=== PATIENT | male | born 1970 | race Caucasian/White ===

== ENCOUNTER 2021-05-17 15:19 | Observation (INO) | payer MEDICAID, SELFPAY ==
[2021-05-17] VITALS (7 sets, daily range): BP systolic 126–135; BP diastolic 71–88; PULSE 90–100; RESP 16–18; TEMP 37.1–38; O2SAT 93–100; BMI 23.1; BMI 22.4
--- NOTE | 2021-05-17 15:37 | EDS_ITS ---
HPI History of Present Illness Chief Complaint: Cellulitis Informant: patient Onset/Context/Timing Onset: Yesterday Context: Gradual Onset Timing: Continuous Current Severity: Moderate Maximum Severity: Moderate Narrative Narrative: 50-year-old male history of hepatitis and and be. Says he had an abrasion over his right ring finger knuckle. And yesterday started having redness and swelling. No prior history. He is not diabetic. Denies any known trauma or punching anyone in the mouth or getting bit. Prior similar symptoms: No Recent Illness/Hospitalization: No PFSH PFSH Home Medications oseltamivir 75 mg PO BID #10 capsule 07/14/16 [Rx Last Taken Unknown] Allergy/AdvReac Type Severity Reaction Status Date / Time No Known Allergies Allergy Verified 05/17/21 15:21 Social History Smoking Status: Current every day smoker tobacco type: cigarettes ROS ROS ED ROS Narrative Right hand swelling and redness. Subjective fever and chills. Review of Systems ROS Unobtainable: Denies due to encephalopathy Constitutional Constitutional ED: Reports chills, fever(s) and subjective; Denies sweats Eyes Eyes: Denies change in vision ENT ENT ED: Denies ear pain Cardiovascular Cardiovascular: Denies chest pain Respiratory/Chest Respiratory/Chest: Denies cough or dyspnea Gastrointestinal Gastrointestinal: Denies abdominal pain, diarrhea, nausea or vomiting Genitourinary Genitourinary ED: Denies dysuria Musculoskeletal Musculoskeletal: Denies myalgias Integumentary Denies rash Neurologic Neurologic: Denies headache(s) Psychiatric Psychiatric: Denies depression Endocrine Endocrinology: Denies polyuria Allergic/Immunologic Allergic/Immunologic ED: Denies urticaria EXAM Physical Exam Narrative Exam Narrative: Middle-age male no acute distress vital signs stable. Temperature 100.4. Patient does not look septic or toxic. Is in no acute distress. H EENT exam unremarkable. Neck nontender no lymphadenopathy. Lungs clear to auscultation bilaterally. Heart regular rhythm no murmur. Abdomen soft nontender normal bowel sounds no peritoneal signs. Extremities moves all 4. His right hand the dorsum is swollen red tender he is able do flexion exte nsion there is no signs of tenosynovitis. No gross bony deformity. There is an abrasion on his right MCP knuckle over the dorsum. Const Vital Signs: 05/17/21 15:19 05/17/21 16:55 05/17/21 17:05 Temperature 100.4 F H 99.4 F H Temperature Source Temporal Oral Pulse Rate 100 90 Respiratory Rate 16 16 Blood Pressure 127/88 H 135/82 H Blood Pressure Mean 101 99 Pulse Ox 100 100 Oxygen Delivery Method Room Air Room Air Positive well nourished and well developed; Negative for obese, cachectic, contractures or unkempt General Appearance ED: well developed and NAD; Negative for unkempt, cachectic, contractures or pallor Nutritional Appearance: Negative for cachectic or obese HEENT Reports moist mucous membranes Negative for trauma or tenderness Eyes PERRL and EOMs intact bilaterally Neck no lymphadenopathy, supple and no JVD General: Negative for tenderness Chest Wall inspection of chest normal and palpation of chest normal Resp normal respiratory effort and clear to auscultation bilaterally Auscultation: Negative for rales, rhonchi or wheezes Cardio regular rate, regular rhythm, S1 normal heart sound, S2 normal heart sound and no murmurs GI normal to inspection, nondistended, normoactive bowel sounds, non-tender, non- distended and no masses Auscultation: normoactive bowel sounds Palpation: soft; Negative for tender, guarding or rebound tenderness present Back/Spine no CVA tenderness Extremity Extremity Narrative: Dorsum right hand red, swollen streaks above the wrist. No axillary lymphadenopathy. No tenosynovitis. Able to open and close his hand. No bony deformity. General Extremety ED: Yes edema and tenderness General Extremity: edema Neuro oriented x3 and CN's II-XII intact bilaterally Sensorium / Orientation: alert; Negative for orientation impaired, lethargic or stuporous Motor Exam: strength 5/5 throughout Psych mental status grossly normal Appearance: Negative for unkempt Mood & Affect: Negative for depressed or tearful Skin No no rashes or lesions noted and No no wounds Skin Narrative: Dorsum right hand cellulitis. Abrasion right General Skin Exam: Negative for jaundice or pallor MDM MDM MDM Narrative Medical decision making narrative: 50-year-old with cellulitis to his right hand. He denies any trauma pain is bit. He will be started on IV Unasyn. Screening labs and x-ray being obtained. Repeat exam patient is doing well at 5:27 PM to the patient's elevated white count the mild swelling in his hand I think he would benefit from admission and IV antibiotics. I discussed with the hospitalist. Again he has no signs of tenosynovitis. Lab Data Attestation: I reviewed the patient's lab results. Lab results narrative: CBC shows a white count of 20,000. Hemoglobin 14.9. Platelets 241. Electrolytes sodium 134 gap is 7 normal BUN and creatinine. Glucose 148. Hand x-ray shows soft tissue swelling but no fracture. Labs: Laboratory Results - last 24 hr 05/17/21 05/17/21 15:49 15:49 WBC 20.3 H RBC 4.63 Hgb 14.9 Hct 44.2 MCV 95.5 H MCH 32.2 H MCHC 33.7 RDW Std Deviation 44.9 H RDW Coeff of Alessandra 12.7 Plt Count 241 MPV 9.1 Immature Gran % (Auto) 0.500 Neut % (Auto) 85.4 H Lymph % (Auto) 9.6 L [place] % (Auto) 4.2 Eos % (Auto) 0.1 Baso % (Auto) 0.2 Absolute Neuts (auto) 17.3 H Absolute Lymphs (auto) 1.95 Nucleated RBC % 0 Sodium 134 L Potassium 4.1 Chloride 100 Carbon Dioxide 27.0 Anion Gap 7 BUN 11 Creatinine 0.88 Estim Creat Clear Calc 114.01 Est GFR (MDRD) Af Amer 118 Est GFR (MDRD) Non-Af 97 BUN/Creatinine Ratio 12.5 Glucose 148 H Calcium 8.7 Radiography Diagnostic Testing: Clinical Impression(s) from Imaging Studies Hand X-Ray 05/17/21 15:57 IMPRESSION: Moderate soft tissue swelling Electronically Signed: Twin Cool MD at 16:50 EST , Service support , Right hand x-ray 3 views interpreted by myself and the radiologist shows soft tissue swelling but no acute fracture. No subcu air. Discharge Plan Triage Chief Complaint: Cellulitis ED Provider: Sohail Avery Dx/Rx/DC Orders Clinical Impression: Cellulitis of right hand, Leukocytosis Prescriptions: No Action oseltamivir 75 MG capsule 75 mg PO BID Qty: 10 RF: 0 Primary Care Provider: Victorino Obrien Referrals: Victorino Obrien MD [Primary Care Provider] - Disposition Disposition: Acute Care Hospital [facility] [place] [facility]
--- NOTE | 2021-05-17 15:57 | RAD_ITS ---
STUDY: X-RAY - RIGHT HAND REASON FOR EXAM: Male, 50 years old. RIGHT HAND SWELLING AND REDNESS SINCE YESTERDAY TECHNIQUE: 3 view(s) of the hand. COMPARISON: None. FINDINGS: Small corticated ossicle seen at the base and ulnar side of the fifth metacarpal bone could be developmental or sequela from old trauma. No visualized acute fractures. Moderate soft tissue swelling is present over the dorsum of the hand. Normal radiocarpal articulation. Normal distal radioulnar joint. Normal visualized carpal bones. Normal carpal articulations Normal carpometacarpal articulation of the thumb. Normal second through fifth carpometacarpal joints. Normal metacarpi. Normal metacarpophalangeal joint of the thumb. Normal interphalangeal joint of the thumb. Normal proximal and distal phalanges of the thumb. Normal metacarpophalangeal joints of the second through fifth fingers. Normal proximal and distal interphalangeal joints of the second through fifth fingers. Normal phalanges of the second through fifth fingers. RAD/Hand Min 3 Views IMPRESSION: Moderate soft tissue swelling Electronically Signed: Twin Cool MD at 16:50 EST , Service support ,
[2021-05-17 16:02] LABS: Absolute Lymphocyte Count 1.95 X10^3/uL (0.83-4.51); Absolute Neutrophil Count 17.3 X10^3/uL (2.0-7.7); Basophil# 0.04 X10^3/uL; Basophil% 0.2 % (0-1); Eosinophil# 0.03 X10^3/uL; Eosinophils% 0.1 % (0-5); Hematocrit 44.2 % (40-54); Hemoglobin 14.9 g/dL (13.0-16.5); Lymphocyte # 1.95 X10^3/ul (0.83-4.51); Lymphocyte % 9.6 % (19-41); Mean Corp Hgb Conc 33.7 g/dL (32-36); Mean Corpuscular Hgb 32.2 pg (27.0-32.0); Mean Corpuscular Volume 95.5 fL (80-94); Mean Platelet Vol. 9.1 fl (6.2-12.0); Monocyte# 0.85 X10^3/uL; Monocyte% 4.2 % (0-10); NRBC Flagged by Analyzer 0 % (0-5); Neutrophil # 17.28 X10^3/uL (2.7-7.7); Neutrophil % 85.4 % (47-70); Platelet Count 241 K/mm3 (150-450); RBC Distribution Width CV 12.7 % (11.6-14.6); RBC Distribution Width SD 44.9 fl (35.1-43.9); Red Blood Count 4.63 M/mm3 (4.6-6.2); White Blood Count 20.3 K/mm3 (4.4-11.0)
[2021-05-17 16:15] LABS: Anion Gap 7 (5-15); BUN 11 mg/dL (7-18); BUN/Creat Ratio 12.5 RATIO (10-20); Calcium,Total 8.7 mg/dL (8.5-10.1); Chloride 100 mmol/L (98-107); Creatinine, Serum 0.88 mg/dL (0.70-1.30); EST Glomerular Filtration Rate 97 mL/min (>60); Est Glom Filt Rate - Afr Amer 118 mL/min (>60); Estimated Creatinine Clearance 114.01 ml/min; Glucose 148 mg/dL (74-106); Potassium 4.1 mmol/L (3.5-5.1); Sodium Level 134 mmol/L (136-145)
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
[2021-05-17] MEDS: Acetaminophen 325 MG Tablet 650 MG PO (19:03)
[2021-05-17] MEDS: Lactated Ringers 1,000 ML 150 ML IV (19:03)
[2021-05-18] MEDS: Lactated Ringers 1,000 ML 150 ML IV (02:10)
[2021-05-18 03:29] VITALS: BP 138/80; PULSE 83; RESP 18; TEMP 37.1; O2SAT 99
[2021-05-18] MEDS: Ibuprofen 400 MG Tablet PO ×3 (03:49→20:22)
[2021-05-18 04:56] LABS: Absolute Lymphocyte Count 1.94 X10^3/uL (0.83-4.51); Absolute Neutrophil Count 11.6 X10^3/uL (2.0-7.7); Basophil# 0.04 X10^3/uL; Basophil% 0.3 % (0-1); Eosinophils% 0.7 % (0-5); Hematocrit 40.3 % (40-54); Hemoglobin 13.6 g/dL (13.0-16.5); Lymphocyte # 1.94 X10^3/ul (0.83-4.51); Mean Corp Hgb Conc 33.7 g/dL (32-36); Mean Corpuscular Hgb 32.5 pg (27.0-32.0); Mean Corpuscular Volume 96.2 fL (80-94); Mean Platelet Vol. 9.4 fl (6.2-12.0); Monocyte# 1.15 X10^3/uL; Monocyte% 7.7 % (0-10); NRBC Flagged by Analyzer 0 % (0-5); Neutrophil # 11.59 X10^3/uL (2.7-7.7); Neutrophil % 77.8 % (47-70); Platelet Count 223 K/mm3 (150-450); RBC Distribution Width CV 12.6 % (11.6-14.6); RBC Distribution Width SD 44.8 fl (35.1-43.9); Red Blood Count 4.19 M/mm3 (4.6-6.2); White Blood Count 14.9 K/mm3 (4.4-11.0)
[2021-05-18 05:27] LABS: AST(SGOT) 36 U/L (15-37); Alanine Aminotransfer ALT/SGPT 93 U/L (16-61); Albumin, Serum 3.1 g/dL (3.2-5.0); Alkaline Phosphatase 69 U/L (45-117); Anion Gap 6 (5-15); BUN 9 mg/dL (7-18); BUN/Creat Ratio 11.8 RATIO (10-20); Bilirubin, Direct 0.36 mg/dL (0.00-0.30); Calcium,Total 8.4 mg/dL (8.5-10.1); Chloride 104 mmol/L (98-107); Creatinine, Serum 0.76 mg/dL (0.70-1.30); EST Glomerular Filtration Rate 116 mL/min (>60); Est Glom Filt Rate - Afr Amer 140 mL/min (>60); Estimated Creatinine Clearance 128.46 ml/min; Globulin 3.9 g/dL (2.2-4.2); Glucose 114 mg/dL (74-106); Potassium 3.9 mmol/L (3.5-5.1); Sodium Level 135 mmol/L (136-145)
[2021-05-18 08:27] LABS: Hemoglobin A1c 5.5 % (3.8-5.6)
[2021-05-18] MEDS: 0.9% Saline Lock 10 ML Syringe IV ×4 (08:34→18:13)
[2021-05-18 10:00] VITALS: BP 113/69; PULSE 80; RESP 16; TEMP 36.8; O2SAT 98
[2021-05-18] MEDS: Acetaminophen 325 MG Tablet 650 MG PO ×2 (10:14→18:13)
--- NOTE | 2021-05-18 12:50 | PCM.PN.HOSP ---
Documented by User: Luis COREY 05/18/21 13:00 Subjective Subjective Patient is a 50-year-old male comfortably resting in bed, alert and orient x3. Patient reports patient reports that the pain, swelling and red streaking up the right arm has improved. Patient reports that his hand is still quite painful to touch and swollen and discolored. Denies development of any new symptoms overnight. Does not appear in acute distress. Objective Data Objective Data Vital Signs: Vital Signs Temp Pulse Resp BP Pulse Ox 98.2 F 80 16 113/69 98 05/18/21 10:00 05/18/21 10:00 05/18/21 10:00 05/18/21 10:00 05/18/21 10:00 Oxygen Delivery Method Room Air Weight: 170 lb 4.8 oz Body Mass Index (BMI) 22.4 Intake & Output: Intake and Output for Last 24 Hours 05/16/21 05/17/21 05/18/21 23:59 23:59 23:59 Intake Total 166 / 166 2339 / 2339 Balance 166 / 166 2339 / 2339 Lab / Micro Data Result Diagrams: 05/18/21 04:23 05/18/21 04:23 Labs: Laboratory Results - last 24 hr 05/17/21 15:49: WBC 20.3 H, RBC 4.63, Hgb 14.9, Hct 44.2, MCV 95.5 H, MCH 32.2 H, MCHC 33.7, RDW Std Deviation 44.9 H, RDW Coeff of Alessandra 12.7, Plt Count 241, MPV 9.1, Immature Gran % (Auto) 0.500, Neut % (Auto) 85.4 H, Lymph % (Auto) 9.6 L, [place] % (Auto) 4.2, Eos % (Auto) 0.1, Baso % (Auto) 0.2, Absolute Neuts (auto) 17.3 H, Absolute Lymphs (auto) 1.95, Nucleated RBC % 0 05/17/21 15:49: Sodium 134 L, Potassium 4.1, Chloride 100, Carbon Dioxide 27.0, Anion Gap 7, BUN 11, Creatinine 0.88, Estim Creat Clear Calc 114.01, Est GFR (MDRD) Af Amer 118, Est GFR (MDRD) Non-Af 97, BUN/Creatinine Ratio 12.5, Glucose 148 H, Calcium 8.7 05/18/21 04:23: Hemoglobin A1c 5.5 05/18/21 04:23: WBC 14.9 H, RBC 4.19 L, Hgb 13.6, Hct 40.3, MCV 96.2 H, MCH 32.5 H, MCHC 33.7, RDW Std Deviation 44.8 H, RDW Coeff of Alessandra 12.6, Plt Count 223, MPV 9.4, Immature Gran % (Auto) 0.500, Neut % (Auto) 77.8 H, Lymph % (Auto) 13.0 L, [place] % (Auto) 7.7, Eos % (Auto) 0.7, Baso % (Auto) 0.3, Absolute Neuts (auto) 11.6 H, Absolute Lymphs (auto) 1.94, Nucleated RBC % 0 05/18/21 04:23: Sodium 135 L, Potassium 3.9, Chloride 104, Carbon Dioxide 25.0, Anion Gap 6, BUN 9, Creatinine 0.76, Estim Creat Clear Calc 128.46, Est GFR (MDRD) Af Amer 140, Est GFR (MDRD) Non-Af 116, BUN/Creatinine Ratio 11.8, Glucose 114 H, Calcium 8.4 L, Total Bilirubin 1.20 H, Direct Bilirubin 0.36 H, AST 36, ALT 93 H, Alkaline Phosphatase 69, Total Protein 7.0, Albumin 3.1 L, Globulin 3.9 Radiography Diagnostic Testing: Radiology Impression Hand X-Ray 05/17/21 15:57 IMPRESSION: Moderate soft tissue swelling Electronically Signed: Twin Cool MD at 16:50 EST , Service support , Physical Exam Const alert, oriented x3 and no apparent distress HEENT head/scalp atraumatic and moist oral mucous membranes Head and Scalp: normocephalic Eyes PERRL, EOMs intact bilaterally and conjunctivae normal Neck no lymphadenopathy, supple and no JVD Resp normal respiratory effort, no retractions, no use of accessory muscles and clear to auscultation bilaterally Cardio regular rate, regular rhythm, no murmurs and no JVD GI normal to inspection, nondistended, normoactive bowel sounds, soft to palpation and non-tender Extremity Extremity Narrative: Right hand is still quite swollen, erythematous and tender to palpation. Streaking up the right arm has resolved. Skin Skin Narrative: See extremity. Neuro CN's II-XII intact bilaterally Psych affect normal Assessment & Plan Assessment/Plan (1) Cellulitis of right hand: (2) Leukocytosis: PLAN: Day 1 Discharge planning: Current plan is for patient to discharge home when medically ready. 1) cellulitis of the right hand/right upper extremity Right hand is still quite erythematous, swollen and tender to palpation. Vital signs are stable and patient is afebrile. CBC still demonstrates a leukocytosis, WBC is currently 14.9, improved from admission. Blood cultures ordered/pending. X-ray of the right hand admission demonstrated moderate soft tissue swelling. Transition from clindamycin to Zosyn and vancomycin for appropriate empiric coverage. 2) history of chronic hepatitis B infection Hepatitis B serologies and HIV serologies ordered/pending. DVT prophylaxis - low risk, not indicated. Patient seen by Luis Mayfield PA-C, under the supervision of Dr. Long. Time spent on patient care: 10 minutes. Documented by User: Dr. Nubia Long DO 05/18/21 15:04 Subjective Subjective This patient was seen in conjunction with MADHAV Quach. Following is representation my independent history and physical examination. Please see below for any addendum the above. Patient reports that his arm is feeling much better. He states that the redness is much less intense and not spreading as far as it had been. He agrees that the infection is likely due to the sore on his hand. He indicates he is currently homeless and living in his car. Objective Data Lab / Micro Data Result Diagrams: 05/18/21 04:23 05/18/21 04:23 Physical Exam Const alert, oriented x3, no apparent distress and average body habitus Constitutional Narrative: Very pleasant middle-aged white male sitting up in bed watching television, appears comfortable Exam Limitations: no limitations HEENT head/scalp atraumatic and moist oral mucous membranes Head and Scalp: normocephalic Resp normal respiratory effort, no retractions, no use of accessory muscles and clear to auscultation bilaterally Auscultation: Negative for crackles, rales, rhonchi or wheezes Cardio regular rate, regular rhythm, S1 normal heart sound, S2 normal heart sound, no murmurs, no rub, no gallops, no clicks and no JVD GI normal to inspection, nondistended, normoactive bowel sounds, soft to palpation, non-tender and non-distended Extremity Extremity Narrative: Right upper extremity with edema and erythema mostly at the distal aspect of the arm and dorsum of the hand, well-healing sore on the posterior aspect of his right index finger without any drainage, outline from admission noted and significant retraction of erythema noted Peripheral Pulses: Yes pulses 2+ throughout Neuro oriented x3, moves all extremities, no focal motor deficits and no sensory deficits noted Sensorium / Orientation: awake and alert Assessment & Plan Assessment/Plan (1) Cellulitis of right hand: (2) Leukocytosis: (3) Transaminitis: (4) Hyperbilirubinemia: PLAN: Assessment: Cellulitis of the right upper extremity Leukocytosis Transaminitis Hyperbilirubinemia Chronic hepatitis B infection Tobacco abuse Homelessness Plan: -Continue IV antibiotics with vancomycin and Zosyn -Clinically looks much improved -Suspect possible discharge in the next 24 hours -Hepatitis B studies pending -HIV status pending -Case management is consulted given his homelessness--> is currently living in his car Charges/Coding Visit Charges Inpatient E&M: 03263 [facility] Hosp L2
--- NOTE | 2021-05-18 14:34 | PCM.RX.CS ---
Consult Pharmacy has been consulted to manage selected antiobiotic: Vancomycin Type of Consult: New start Suspected Infection: Skin/Soft tissue Prior Doses of Antibiotics Received/Current Regimen: 1250MG X 1 INITIAL DOSE Labs: Sodium 135 mmol/L (136-145) L 05/18/21 04:23 Potassium 3.9 mmol/L (3.5-5.1) 05/18/21 04:23 Chloride 104 mmol/L (98-107) 05/18/21 04:23 Carbon Dioxide 25.0 mmol/L (21.0-32.0) 05/18/21 04:23 Anion Gap 6 (5-15) 05/18/21 04:23 BUN 9 mg/dL (7-18) 05/18/21 04:23 Creatinine 0.76 mg/dL (0.70-1.30) 05/18/21 04:23 Est GFR (MDRD) Af Amer 140 mL/min (>60) 05/18/21 04:23 Est GFR (MDRD) Non-Af 116 mL/min (>60) 05/18/21 04:23 BUN/Creatinine Ratio 11.8 RATIO (10-20) 05/18/21 04:23 Glucose 114 mg/dL (74-106) H 05/18/21 04:23 Weight used for dosin.2 kg Estimated Creatinine Clearance: >100ML/MIN Goal Trough: 15-20 mcg/mL Pharmacy Plan for Drug Dosing: Will begin 1gm iv q8h as initial therapy. Trough level ordered for 05.19.21 before 4th dose. Pharmacy Service will continue to monitor and adjust dosing as required. Follow-Up Labs: Trough Vancomycin - .02.28@1730 before 1800 dose
[2021-05-18 14:40] VITALS: BP 115/66; PULSE 82; RESP 16; TEMP 36.9; O2SAT 99
[2021-05-18] MEDS: Vancomycin IV 1,000 MG/200 ML BAG 200 MG IV (18:13)
[2021-05-18 20:17] VITALS: BP 110/66; PULSE 81; RESP 16; TEMP 36.9; O2SAT 98
[2021-05-19] MEDS: Vancomycin IV 1,000 MG/200 ML BAG 200 MG IV ×3 (01:46→21:52)
[2021-05-19 02:17] VITALS: BP 107/61; PULSE 71; RESP 16; TEMP 36.7; O2SAT 100
[2021-05-19 06:16] LABS: Absolute Lymphocyte Count 1.34 X10^3/uL (0.83-4.51); Absolute Neutrophil Count 5.7 X10^3/uL (2.0-7.7); Basophil# 0.03 X10^3/uL; Basophil% 0.4 % (0-1); Eosinophil# 0.16 X10^3/uL; Hematocrit 40.5 % (40-54); Hemoglobin 13.5 g/dL (13.0-16.5); Lymphocyte # 1.34 X10^3/ul (0.83-4.51); Lymphocyte % 17.1 % (19-41); Mean Corp Hgb Conc 33.3 g/dL (32-36); Mean Corpuscular Hgb 31.9 pg (27.0-32.0); Mean Corpuscular Volume 95.7 fL (80-94); Mean Platelet Vol. 9.2 fl (6.2-12.0); Monocyte# 0.62 X10^3/uL; Monocyte% 7.9 % (0-10); NRBC Flagged by Analyzer 0 % (0-5); Neutrophil # 5.65 X10^3/uL (2.7-7.7); Neutrophil % 72.2 % (47-70); Platelet Count 222 K/mm3 (150-450); RBC Distribution Width CV 12.7 % (11.6-14.6); RBC Distribution Width SD 45.1 fl (35.1-43.9); Red Blood Count 4.23 M/mm3 (4.6-6.2); White Blood Count 7.8 K/mm3 (4.4-11.0)
[2021-05-19 06:44] LABS: Anion Gap 5 (5-15); BUN 13 mg/dL (7-18); BUN/Creat Ratio 16.6 RATIO (10-20); Calcium,Total 8.1 mg/dL (8.5-10.1); Chloride 109 mmol/L (98-107); Creatinine, Serum 0.78 mg/dL (0.70-1.30); EST Glomerular Filtration Rate 111 mL/min (>60); Est Glom Filt Rate - Afr Amer 135 mL/min (>60); Estimated Creatinine Clearance 125.17 ml/min; Glucose 109 mg/dL (74-106); Potassium 4.2 mmol/L (3.5-5.1); Sodium Level 140 mmol/L (136-145)
[2021-05-19 08:43] LABS: Hepatitis B Surface Antibody Reactive; Hepatitis B Surface Antigen Non-Reactive (Nonreactive)
[2021-05-19 08:49] LABS: HIV - WCH Non-Reactive (Nonreactive)
[2021-05-19 09:15] VITALS: BP 99/54; PULSE 84; RESP 18; TEMP 36.8; O2SAT 100
--- NOTE | 2021-05-19 10:44 | NURSING ---
Dr. Leonard not here per blasting machine operator but his Nurse Practioner will see his pts only, no consults. Dr. Gilbert notifed since there is an order for consulting him.
--- NOTE | 2021-05-19 11:15 | CASEMGMT ---
DAKOTA HERBERT Face to Face with patient for initial transition planning/care coordination assessment. RN PIEDAD introduced self and role at [facility]. Patient lying in bed, alert and oriented. Patient willing to participate in assessment and is able to answer all questions appropriately. Care providers, pharmacy, and demographics verified. Patient wishes to discharge to his car where he lives, denies need for home health at this time. Patient states he has no further needs or concerns at this time. CM to follow for discharge planning needs that may arise. PCP: Camille Specialists: none Preferred Pharmacy: [facility] Insurance: [employer] Prescription Benefit: yes Living Will/HPOA: none LNOK: brother Living Arrangements: Patient states he is living in his car. Patient states he is independent and denies needs. SW updated regarding homelessness Transportation: self DME/HHC: Patient denies any DME or previous HHC. Disposition Plan: Patient to discharge with follow-up plans in place. Michaela SERNA, RN, CM
--- NOTE | 2021-05-19 12:03 | PN.HOSP_ITS ---
Documented by User: Luis COREY 05/19/21 12:09 Subjective Subjective Patient is a 50-year-old male comfortably lying in bed, alert and orient x3. Patient reports that his right hand is still very swollen, although is no longer tender to palpation and feels that redness is also improved. Denies development of any new symptoms overnight. Does not appear in acute distress. Objective Data Objective Data Vital Signs: Vital Signs Temp Pulse Resp BP Pulse Ox 98.3 F 84 18 99/54 L 100 05/19/21 09:15 05/19/21 09:15 05/19/21 09:15 05/19/21 09:15 05/19/21 09:15 Oxygen Delivery Method Room Air Weight: 170 lb 4.8 oz Body Mass Index (BMI) 22.4 Intake & Output: Intake and Output for Last 24 Hours 05/17/21 05/18/21 05/19/21 23:59 23:59 23:59 Intake Total 166 / 166 3489 / 3989 1050 / 1050 Balance 166 / 166 3489 / 3989 1050 / 1050 Lab / Micro Data Result Diagrams: 05/19/21 05:56 05/19/21 05:56 Labs: Laboratory Results - last 24 hr 05/18/21 04:23: HIV 1&2 Antibody Non-Reactive 05/18/21 04:23: Hep Bs Antigen Non-Reactive, Hep Bs Antibody Reactive 05/19/21 05:56: WBC 7.8, RBC 4.23 L, Hgb 13.5, Hct 40.5, MCV 95.7 H, MCH 31.9, MCHC 33.3, RDW Std Deviation 45.1 H, RDW Coeff of Alessandra 12.7, Plt Count 222, MPV 9.2, Immature Gran % (Auto) 0.400, Neut % (Auto) 72.2 H, Lymph % (Auto) 17.1 L, [place] % (Auto) 7.9, Eos % (Auto) 2.0, Baso % (Auto) 0.4, Absolute Neuts (auto) 5.7, Absolute Lymphs (auto) 1.34, Nucleated RBC % 0 05/19/21 05:56: Sodium 140, Potassium 4.2, Chloride 109 H, Carbon Dioxide 26.0, Anion Gap 5, BUN 13, Creatinine 0.78, Estim Creat Clear Calc 125.17, Est GFR (MDRD) Af Amer 135, Est GFR (MDRD) Non-Af 111, BUN/Creatinine Ratio 16.6, Glucose 109 H, Calcium 8.1 L Physical Exam Const alert, oriented x3 and no apparent distress HEENT head/scalp atraumatic and moist oral mucous membranes Head and Scalp: normocephalic Eyes PERRL, EOMs intact bilaterally and conjunctivae normal Neck no lymphadenopathy, supple and no JVD Resp normal respiratory effort, no retractions, no use of accessory muscles and clear to auscultation bilaterally Cardio regular rate, regular rhythm, no murmurs and no JVD GI normal to inspection, nondistended, normoactive bowel sounds, soft to palpation and non-tender Extremity Extremity Narrative: Right hand still profoundly swollen, erythema improved. Skin no rashes or lesions noted, no wounds and skin turgor normal Neuro CN's II-XII intact bilaterally Psych affect normal Assessment & Plan Assessment/Plan (1) Cellulitis of right hand: PLAN: Day 2 Discharge planning: Current plan is for patient to discharge home when medically ready. 1) cellulitis of the right hand/right upper extremity Right hand is still very swollen, although redness and tenderness to palpation have improved. Vital signs are stable and patient is afebrile. Leukocytosis has resolved, WBC is currently at 7.8. Blood cultures ordered/pending. Will consult orthopedics or general surgery for possible I&D of right hand, as plastic surgeon is not currently available. Continue vancomycin and Zosyn. 2) history of chronic hepatitis B infection Hepatitis B serologies and HIV serologies ordered/pending. DVT prophylaxis - low risk, not indicated. Patient seen by Luis Mayfield PA-C, under the supervision of Dr. Gilbert. Time spent on patient care: 9 minutes. Documented by User: Dr. Bhargavi Gilbert MD 05/19/21 16:07 Objective Data Lab / Micro Data Result Diagrams: 05/19/21 05:56 05/19/21 05:56 Charges/Coding Addendum Addendum: Patient seen by Luis Mayfield PA-C under my supervision Patient seen and examined. He still complains of pain and swelling of his right hand. He is able to make a fist. However dorsum of the right hand is still swollen and erythematous and mildly tender to touch. Review of systems otherwise negative. O/E: Const alert, oriented x3 and no apparent distress HEENT head/scalp atraumatic and moist oral mucous membranes Head and Scalp: normocephalic Eyes PERRL, EOMs intact bilaterally and conjunctivae normal Neck no lymphadenopathy, supple and no JVD Resp normal respiratory effort, no retractions, no use of accessory muscles and clear to auscultation bilaterally Cardio regular rate, regular rhythm, no murmurs and no JVD GI normal to inspection, nondistended, normoactive bowel sounds, soft to palpation and non-tender Extremity Extremity Narrative: Dorsum of right hand still swollen, mildly erythematous, moderate tenderness, able to make a fist. Skin no rashes or lesions noted, no wounds and skin turgor normal Neuro CN's II-XII intact bilaterally Psych affect normal Assessment and plan #Cellulitis of the right hand * Hand is still swollen and the redness and tenderness appear to have improved. Leukocytosis is also resolved. * Blood cultures are pending. Continue IV Zosyn. * Consult Ortho in light of sepsis persistent swelling of right hand. Plastic surgery not available. * Ortho recommending MRI of the hand to evaluate for abscess. Results pending. * Tylenol for pain. * #Chronic hepatitis B infection: * Hepatitis B surface antigen nonreactive with antibody reactive. * Patient stable. * HIV 1 and 2 antibodies were also nonreactive * DVT prophylaxis: lovenox Total time spent on care of patient: 20 mins Visit Charges Inpatient E&M: 15754 Subs Hosp L2
--- NOTE | 2021-05-19 12:36 | MRI_ITS ---
STUDY: MRI RIGHT HAND REASON FOR EXAM: Male, 50 years old. Assess for possible abscess /osteomyelitis; swelling,redness, tenderness, dorsum right hand, no known injury TECHNIQUE: Standardized fat and water weighted pulse sequences were obtained in all 3 orthogonal planes. COMPARISON: Right hand x-ray dated May 17, 2021 FINDINGS: Interval development of a distended degenerated bursa on the superficial volar surface of the flexor retinaculum of the wrist measuring 2.78 cm in craniocaudal dimension and 1.5 cm in width. Possible superinfection of this bursal cyst, however direct aspiration of the internal contents would be required to determine if they are infected. Moderate subcutaneous edema is present throughout the hand. FIRST DIGIT: Normal visualized first metacarpus. Moderate degenerative narrowing of the CMC articulation of the thumb and moderate lateral subluxation of the metacarpal bone of the thumb. Mild narrowing of the MCP and IP joints of the thumb and osteoarthritis. Normal flexor and extensor tendons. SECOND DIGIT: Normal visualized second metacarpus. There is mild to moderate osteoarthritis and degenerative narrowing of the second CMC. Normal metacarpophalangeal joint. Normal proximal and distal interphalangeal joints. Normal proximal, middle and distal phalanges. Normal flexor and extensor tendons. THIRD DIGIT: Normal visualized third metacarpus. Normal metacarpophalangeal joint. Normal proximal and distal interphalangeal joints. Normal proximal, middle and distal phalanges. Normal flexor and extensor tendons. FOURTH DIGIT: Normal visualized fourth metacarpus. Normal metacarpophalangeal joint. Normal proximal and distal interphalangeal joints. Normal proximal, middle and distal phalanges. Normal flexor and extensor tendons. FIFTH DIGIT: Normal visualized fifth metacarpus. Normal metacarpophalangeal joint. Normal proximal and distal interphalangeal joints. Normal proximal, middle and distal phalanges. Normal flexor and extensor tendons. Normal visualized thenar and hypothenar muscles. Normal lumbricalis and interosseous muscles. There are no solid, cystic or lipomatous masses. MRI/Upper Ext/No Jt/ wo IMPRESSION: 1. Interval development of a distended degenerated bursa on the superficial volar surface of the flexor retinaculum of the wrist measuring 2.78 cm in craniocaudal dimension and 1.5 cm in width. Possible superinfection of this bursal cyst, however direct aspiration of the internal contents would be required to determine if they are infected. 2. Moderate subcutaneous edema is present throughout the hand. Cellulitis versus lymphedema or third spacing of fluid from an underlying systemic process can also present in this manner. Electronically Signed: Twin Cool MD at 19:54 EST , Service support ,
[2021-05-19] MEDS: Acetaminophen 325 MG Tablet 650 MG PO (13:26)
--- NOTE | 2021-05-19 13:46 | NURSING ---
MRI sheet completed and faxed down to MRI.
--- NOTE | 2021-05-19 13:57 | RAD_ITS ---
STUDY: X-RAY - ORBITS REASON FOR EXAM: Male, 50 years old. PRE MRI ORBITS; R/O FOREIGN BODY TECHNIQUE: 2 view(s) of the orbits were obtained. COMPARISON: None. FINDINGS: Normal bilateral orbits without a metallic orbital foreign body. Normal visualized facial bones. Normal paranasal sinuses. The soft tissue structures are unremarkable. RAD/Orbits for Foreign Body IMPRESSION: No demonstrated metallic orbital foreign body. The patient is cleared for an MRI examination. Electronically Signed: Abdon Wyatt MD at 14:57 EST , Service support ,
[2021-05-19 14:30] VITALS: BP 107/55; PULSE 72; RESP 18; TEMP 37; O2SAT 99
--- NOTE | 2021-05-19 14:39 | NURSING ---
Pt is [facility] locked and going down via WC to Radiology then to MRI.
--- NOTE | 2021-05-19 16:15 | NURSING ---
PT BACK FROM RAD AND MRI AT THIS X VIA , DENIES NEEDS OR C/O. CALL LIGHT IN REACH.
--- NOTE | 2021-05-19 16:43 | NURSING ---
Pt just got back from MRI. hooked back up to IV.
[2021-05-19] MEDS: Piperacil/Tazobactam 3.375 GM/50 ML ML IV ×2 (17:08→23:06)
[2021-05-19 18:53] LABS: Vancomycin, Trough Level 17.8 ug/mL (5.0-15.0)
[2021-05-19 19:33] VITALS: BP 111/54; PULSE 80; RESP 16; TEMP 36.6; O2SAT 100
--- NOTE | 2021-05-19 19:47 | PCM.RX.CS ---
Consult Pharmacy has been consulted to manage selected antiobiotic: Vancomycin Type of Consult: New start Prior Doses of Antibiotics Received/Current Regimen: Medications Vancomycin HCl (Vancomycin) 1,000 mg in 200 mls @ 200 mls/hr IV Q8H SAMUEL Last Admin: 05/19/21 14:40 Dose: Infused Documented by: Labs: Sodium 140 mmol/L (136-145) 05/19/21 05:56 Potassium 4.2 mmol/L (3.5-5.1) 05/19/21 05:56 Chloride 109 mmol/L (98-107) H 05/19/21 05:56 Carbon Dioxide 26.0 mmol/L (21.0-32.0) 05/19/21 05:56 Anion Gap 5 (5-15) 05/19/21 05:56 BUN 13 mg/dL (7-18) 05/19/21 05:56 Creatinine 0.78 mg/dL (0.70-1.30) 05/19/21 05:56 Est GFR (MDRD) Af Amer 135 mL/min (>60) 05/19/21 05:56 Est GFR (MDRD) Non-Af 111 mL/min (>60) 05/19/21 05:56 BUN/Creatinine Ratio 16.6 RATIO (10-20) 05/19/21 05:56 Glucose 109 mg/dL (74-106) H 05/19/21 05:56 Vancomycin Trough 17.8 ug/mL (5.0-15.0) H 05/19/21 17:35 Weight used for dosin kg Goal Trough: 15-20 mcg/mL Pharmacy Plan for Drug Dosing: Trough in goal range but only a 4 hour level. Recommend to adjust times to new 09-19-20 schedule and recheck trough prior to 4th dose. Patient also on q8 Zosyn so timing may continue to be difficult. Pharmacy Service will continue to monitor and adjust dosing as required. Follow-Up Labs: Trough Vancomycin - 05/20 @ 2030
--- NOTE | 2021-05-20 00:14 | PCS.PANDOC ---
PANDEMIC DOCUMENTATION INITIATED: Date: 12/23/2020 Time: 190
[2021-05-20 05:16] VITALS: PULSE 71; RESP 16; TEMP 36.7; O2SAT 98
[2021-05-20] MEDS: Vancomycin IV 1,000 MG/200 ML BAG 200 MG IV (05:19)
[2021-05-20] MEDS: Ibuprofen 400 MG Tablet PO (05:19)
[2021-05-20 06:09] LABS: Absolute Lymphocyte Count 1.71 X10^3/uL (0.83-4.51); Absolute Neutrophil Count 3.9 X10^3/uL (2.0-7.7); Basophil# 0.05 X10^3/uL; Basophil% 0.8 % (0-1); Eosinophil# 0.21 X10^3/uL; Eosinophils% 3.3 % (0-5); Hematocrit 41.7 % (40-54); Lymphocyte # 1.71 X10^3/ul (0.83-4.51); Lymphocyte % 26.8 % (19-41); Mean Corp Hgb Conc 33.6 g/dL (32-36); Mean Corpuscular Hgb 31.7 pg (27.0-32.0); Mean Corpuscular Volume 94.6 fL (80-94); Mean Platelet Vol. 9.1 fl (6.2-12.0); Monocyte# 0.49 X10^3/uL; Monocyte% 7.7 % (0-10); NRBC Flagged by Analyzer 0 % (0-5); Neutrophil % 60.9 % (47-70); Platelet Count 279 K/mm3 (150-450); RBC Distribution Width CV 12.6 % (11.6-14.6); RBC Distribution Width SD 43.9 fl (35.1-43.9); Red Blood Count 4.41 M/mm3 (4.6-6.2); White Blood Count 6.4 K/mm3 (4.4-11.0)
[2021-05-20 06:28] LABS: Anion Gap 6 (5-15); BUN 11 mg/dL (7-18); BUN/Creat Ratio 13.2 RATIO (10-20); Calcium,Total 8.4 mg/dL (8.5-10.1); Chloride 106 mmol/L (98-107); Creatinine, Serum 0.83 mg/dL (0.70-1.30); EST Glomerular Filtration Rate 104 mL/min (>60); Est Glom Filt Rate - Afr Amer 126 mL/min (>60); Estimated Creatinine Clearance 117.63 ml/min; Glucose 112 mg/dL (74-106); Potassium 4.1 mmol/L (3.5-5.1); Sodium Level 138 mmol/L (136-145)
[2021-05-20] MEDS: Piperacil/Tazobactam 3.375 GM/50 ML ML IV (06:41)
[2021-05-20 08:32] VITALS: BP 111/79; PULSE 68; RESP 16; TEMP 36.6; O2SAT 100
--- NOTE | 2021-05-20 09:42 | CON.PCM.OR_ITS ---
HPI Consult Data Date of Consult: 05/20/21 HPI Narrative HPI Narrative: TWIN MOYA, is a 50 M who presented to [facility] emergency department 05/19/2021 with lymphangitic streaking and cellulitis of his right hand. He states he first noted the redness, swelling, and pain 2 days prior to presentation and the streaking started the day after. He denies any antecedent trauma, although he does note a healing abrasion over the interspace between his third and fourth right metacarpal heads. 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 He also notes a remote injury overlying his right carpal tunnel resulting in a subcutaneous fluid collection which has been chronic. He states this is more of a nuisance and has been unchanged since this recent infection. He denies significant pain with this fluid collection. He states most of his pain is in between the third and fourth metacarpals on the dorsum of his hand. He was admitted under the hospitalist service and after 24 hours of IV antibiotics, patient states his pain, swelling, and redness is much improved. He had some fevers and chills yesterday which have since resolved. Denies any nausea or vomiting, chest pain or shortness of breath. PFSH Medical History Hepatitis Smoker Allergy/AdvReac Type Severity Reaction Status Date / Time No Known Allergies Allergy Verified 05/17/21 15:21 Social History Smoking Status: Current every day smoker tobacco type: cigarettes ROS ROS Narrative 10 point review of systems obtained, negative less otherwise noted in HPI. Vital Signs Vital Signs Vital Signs: 05/19/21 14:30 05/19/21 19:33 05/20/21 05:16 Temperature 98.6 F 98 F 98.0 F Temperature Source Oral Oral Oral Pulse Rate 72 80 71 Respiratory Rate 18 16 16 Respiratory Effort Respiratory Depth Respiratory Pattern Blood Pressure 107/55 L 111/54 L Blood Pressure Mean 72 73 Blood Pressure Source Monitor Monitor Monitor Blood Pressure Position Semi-Fowlers Semi-Fowlers Semi-Fowlers Blood Pressure Location Right Arm Left Arm Left Arm Pulse Ox 99 100 98 Oxygen Delivery Method Room Air Room Air Room Air 05/20/21 08:32 Temperature 97.9 F Temperature Source Oral Pulse Rate 68 Respiratory Rate 16 Respiratory Effort Normal Respiratory Depth Normal Respiratory Pattern Normal Blood Pressure 111/79 Blood Pressure Mean 89 Blood Pressure Source Monitor Blood Pressure Position Semi-Fowlers Blood Pressure Location Left Arm Pulse Ox 100 Oxygen Delivery Method Room Air Weight Weight: 170 lb 4.8 oz Body Mass Index (BMI) 22.4 Physical Exam Narrative General -A&Ox3, NAD, appears stated age. Vital signs stable, afebrile. Respiratory -normal work of breathing, no intercostal retractions. CV -pulses regular, brisk capillary refill ?4 limbs. Abdomen-soft, nontender, nondistended. No guarding, rigidity, rebound tenderness. Musculoskeletal/neurologic -hand-cardinal motions of the right hand are intact. Sensation intact to light touch median, ulnar, superficial branch of the radial nerve. Brisk capillary refill in all digits. Radial pulse is 2+. Compartments are soft and compressible. There is a fluctuant fluid collection 4 x 2 cm overlying the carpal tunnel and subcutaneous tissue. This is not erythematous. There is some erythema overlying the interspace between the third and fourth metacarpal heads which is mildly tender. Surgical marker along his forearm demonstrated previous cellulitic versus lymphangitic streaking, which is apparently much improved. There is only mild tenderness to palpation in the forearm. This is nonfocal. Lab / Micro Data Result Diagrams: 05/20/21 05:33 05/20/21 05:33 Labs: Laboratory Results - last 24 hr 05/19/21 17:35: Vancomycin Trough 17.8 H 05/20/21 05:33: WBC 6.4, RBC 4.41 L, Hgb 14.0, Hct 41.7, MCV 94.6 H, MCH 31.7, MCHC 33.6, RDW Std Deviation 43.9, RDW Coeff of Alessandra 12.6, Plt Count 279, MPV 9.1, Immature Gran % (Auto) 0.500, Neut % (Auto) 60.9, Lymph % (Auto) 26.8, [place] % (Auto) 7.7, Eos % (Auto) 3.3, Baso % (Auto) 0.8, Absolute Neuts (auto) 3.9, Absolute Lymphs (auto) 1.71, Nucleated RBC % 0 05/20/21 05:33: Sodium 138, Potassium 4.1, Chloride 106, Carbon Dioxide 26.0, Anion Gap 6, BUN 11, Creatinine 0.83, Estim Creat Clear Calc 117.63, Est GFR (MDRD) Af Amer 126, Est GFR (MDRD) Non-Af 104, BUN/Creatinine Ratio 13.2, Glucos e 112 H, Calcium 8.4 L Micro: Microbiology 05/17/21 19:51 Blood Culture (Wb) - Left Hand Blood Culture - Preliminary No growth in 48 hours. 05/17/21 19:45 Blood Culture (Wb) - Left Forearm Blood Culture - Preliminary No growth in 48 hours. Radiology Impression Upper Extremity MRI 05/19/21 12:36 IMPRESSION: 1. Interval development of a distended degenerated bursa on the superficial volar surface of the flexor retinaculum of the wrist measuring 2.78 cm in craniocaudal dimension and 1.5 cm in width. Possible superinfection of this bursal cyst, however direct aspiration of the internal contents would be required to determine if they are infected. 2. Moderate subcutaneous edema is present throughout the hand. Cellulitis versus lymphedema or third spacing of fluid from an underlying systemic process can also present in this manner. Electronically Signed: Twin Cool MD at 19:54 EST , Service support , Orbit X-Ray 05/19/21 13:57 IMPRESSION: No demonstrated metallic orbital foreign body. The patient is cleared for an MRI examination. Electronically Signed: Abdon Wyatt MD at 14:57 EST , Service support , Assessment & Plan Assessment/Plan (1) Cellulitis of right hand: PLAN: Patient's presentation is consistent with cellulitis of his right hand with previous lymphangitic streaking -Condition appears much improved with IV antibiotics. There was concern for abscess. There is a chronic fluid collection overlying his carpal tunnel, likely a bursa versus simple cyst from prior penetrating injury. This is not an abscess. I recommended continue medical management with transition to oral antibiotics upon discharge for his cellulitis. Educated the patient about elevating his hand above his elbow, and his elbow above his heart to decrease the swelling in his hand. Range of motion exercises were demonstrated of the right hand. He can follow-up with me as needed. I stated that the fluid collection/bursa overlying his carpal tunnel could be resected on a elective basis and he can follow-up with me as needed for this issue as well. Thank you for this consultation. I will sign off. Please do not hesitate to call if any questions or concerns arise.
--- NOTE | 2021-05-20 10:58 | PCM.DC ---
Discharge Instructions Diet Discharge Diet: No restrictions Activity Discharge Activity: Return to Normal Activity Weight Bearing Status: Weight bearing as tolerated Dressing / Incision Call your doctor if you observe: Fever of 101 or Higher, Numbness or Tingling, Shortness of breath, Dizziness, Chest pain, Increased palpitations (irregular heartbeat) and Calf discomfort Follow Up Care Please Follow Up With: Primary care provider When: Within the next two weeks. Test Results: Test results from this visit will be discussed in further detail at your follow-up appointment, if applicable. Discharge Plan Admission Admit Date/Time: 05/17/21 19:16 Primary Reason for Your Visit: RUE cellulitis. Attending Provider: Bhargavi Gilbert Primary Care Provider: Victorino Obrien Discharge Orders/Prescriptions Prescriptions: New doxycycline monohydrate 100 mg capsule 100 mg PO BID Qty: 18 RF: 0 Referrals / Follow Up: Victorino Obrien MD [Primary Care Provider] - Within 2 Weeks Chapincito Trinh DO [STAFF PHYSICIAN] - See Referral Note (See Dr. Trinh for elective removal of bursal cyst. ) Disposition Disposition (needs filled in before D/C Order can be placed): Home, Self Care
--- NOTE | 2021-05-20 11:44 | CASEMGMT ---
Social Work Pt is currently homeless. SW met with pt to discuss discharge plan. Pt stating that he currently lives in his car as he was unable to pay rent and was evicted. SW provided resources on [facility] homeless skilled nursing as well as written information on shelters in [facility] and [place]. SW also informed pt of the [facility] at [facility]. SW provided housing information form [facility] and the [facility] housing support program. Written [employer] Card also provided. Pt appreciative and thankful for information and informs SW that he will take care of it and declines any further assistance at this time. SW inquired about leaving and pt states his car is at the [facility] apartment complex in [place]. SW inquired about pt getting there safely and he states he will walk. SW offered hospital van transportation or to assist with arranging Taxi. Pt declined again stating he can take care of himself. No further SW needs. Nursing updated. KENDY Jay
--- NOTE | 2021-05-20 14:26 | DS.PCM_ITS ---
Documented by User: Luis COREY 05/20/21 14:34 Providers Date of Admission: 05/17/21 Date of Discharge: 05/20/21 Primary Care Physician: Dr. Victorino Obrien MD Reason For Visit: HAND CELLULITIS Diagnosis Discharge Diagnosis (1) Cellulitis of right hand: Status: Acute Code(s): L03.113 - Cellulitis of right upper limb Medications at Discharge Home Medications doxycycline monohydrate 100 mg PO BID #18 cap 05/20/21 Hospital Course Summary of Care Provided Minutes Spent on Discharge: 15 Hospital Course: Patient is a 50-year-old male who was admitted to the hospital on 05/17/2021 for evaluation and management of right upper extremity cellulitis. 1) cellulitis of the right hand/right upper extremity Patient's right hand swelling has significantly improved from yesterday. Patient erythema, tenderness and streaking have also resolved from admission. Vital signs are stable and patient is afebrile. Leukocytosis has resolved, WBC is currently at 6.4. Blood cultures demonstrate no growth. Orthopedics was consulted on day 2 of admission, out of concern for possible need for incision and drainage as her right hand was still acutely swollen. MRI obtained, no abscess appreciated. Orthopedics did meet with patient and is in agreement that there is no need for acute I&D, although, Dr. Trinh would like to see this patient in outpatient basis for possible elective removal of bursal cyst in the right wrist. Referral made to Dr. Trinh, patient is to continue taking doxycycline for another 9 days, and is to follow-up with primary care provider within the next 2 weeks. 2) history of chronic hepatitis B infection Hepatitis B antibodies present, antigens negative. HIV 1 and 2 antibodies not reactive. Patient to follow-up with primary care provider for outpatient management of chronic hepatitis B. Patient seen by Luis Mayfield PA-C, under the supervision of Dr. Gilbert. Time spent on patient care: 15 minutes. Physical Exam Narrative Patient is a 50-year-old male comfortably resting in bed, alert and orient x3. Patient reports that his hand swelling has significantly improved from yesterday. Erythema and tenderness to palpation have also resolved from admission. Denies development of any new symptoms overnight. Does not appear in acute distress. Const alert, oriented x3 and no apparent distress HEENT normocephalic, head/scalp atraumatic and hearing grossly normal bilaterally Eyes PERRL, EOMs intact bilaterally and conjunctivae normal Neck no lymphadenopathy, supple and no JVD Resp normal respiratory effort, no retractions, no use of accessory muscles and clear to auscultation bilaterally Cardio regular rate, regular rhythm, no murmurs and no JVD GI normal to inspection, nondistended, normoactive bowel sounds and non-tender Extremity normal to inspection, full ROM and no clubbing, cyanosis or edema Skin no rashes or lesions noted, no wounds and skin turgor normal Neuro CN's II-XII intact bilaterally Psych affect normal Weight / BMI Weight Weight: 170 lb 4.8 oz Body Mass Index (BMI) 22.4 ABG / Lab / Microbiology Data Result Diagrams: 05/20/21 05:33 05/20/21 05:33 Laboratory: Laboratory Results - last 24 hr 05/19/21 17:35: Vancomycin Trough 17.8 H 05/20/21 05:33: WBC 6.4, RBC 4.41 L, Hgb 14.0, Hct 41.7, MCV 94.6 H, MCH 31.7, MCHC 33.6, RDW Std Deviation 43.9, RDW Coeff of Alessandra 12.6, Plt Count 279, MPV 9.1, Immature Gran % (Auto) 0.500, Neut % (Auto) 60.9, Lymph % (Auto) 26.8, Caswell % (Auto) 7.7, Eos % (Auto) 3.3, Baso % (Auto) 0.8, Absolute Neuts (auto) 3.9, Absolute Lymphs (auto) 1.71, Nucleated RBC % 0 05/20/21 05:33: Sodium 138, Potassium 4.1, Chloride 106, Carbon Dioxide 26.0, Anion Gap 6, BUN 11, Creatinine 0.83, Estim Creat Clear Calc 117.63, Est GFR (MDRD) Af Amer 126, Est GFR (MDRD) Non-Af 104, BUN/Creatinine Ratio 13.2, Glucose 112 H, Calcium 8.4 L Microbiology: Microbiology 05/20/21 09:20 Nasal Secretion SARS-CoV-2 Antigen (Rapid) - Final 05/17/21 19:51 Blood Culture (Wb) - Left Hand Blood Culture - Preliminary No growth in 48 hours. 05/17/21 19:45 Blood Culture (Wb) - Left Forearm Blood Culture - Preliminary No growth in 48 hours. Radiography Diagnostic Testing: Radiology Impression Upper Extremity MRI 05/19/21 12:36 IMPRESSION: 1. Interval development of a distended degenerated bursa on the superficial volar surface of the flexor retinaculum of the wrist measuring 2.78 cm in craniocaudal dimension and 1.5 cm in width. Possible superinfection of this bursal cyst, however direct aspiration of the internal contents would be required to determine if they are infected. 2. Moderate subcutaneous edema is present throughout the hand. Cellulitis versus lymphedema or third spacing of fluid from an underlying systemic process can also present in this manner. Electronically Signed: Twin Cool MD at 19:54 EST , Service support , Orbit X-Ray 05/19/21 13:57 IMPRESSION: No demonstrated metallic orbital foreign body. The patient is cleared for an MRI examination. Electronically Signed: Abdon Wyatt MD at 14:57 EST , Service support , D/C Instructions Discharge Diet: No restrictions Weight Bearing Status: Weight bearing as tolerated Call your doctor if you observe: Fever of 101 or Higher, Numbness or Tingling, Shortness of breath, Dizziness, Chest pain, Increased palpitations (irregular heartbeat) and Calf discomfort Please Follow Up With: Primary care provider When: Within the next two weeks. Meaningful Use Info Meaningful Use Diagnoses (Choose all that apply): None applicable Discharge Plan Admission Admit Date/Time: 05/17/21 19:16 Primary Reason for Your Visit: RUE cellulitis. Attending Provider: Bhargavi Gilbert Primary Care Provider: Victorino Obrien Discharge Orders/Prescriptions Prescriptions: New doxycycline monohydrate 100 mg capsule 100 mg PO BID Qty: 18 RF: 0 Referrals / Follow Up: Victorino Obrien MD [Primary Care Provider] - Within 2 Weeks [place] Trinh DO [STAFF PHYSICIAN] - See Referral Note (See Dr. Trinh for elective removal of bursal cyst. ) Disposition Disposition (needs filled in before D/C Order can be placed): Home, Self Care Documented by User: Dr. Bhargavi Gilbert MD 05/20/21 16:15 Providers Date of Admission: 05/17/21 Reason For Visit: HAND CELLULITIS Medications at Discharge Home Medications doxycycline monohydrate 100 mg PO BID #18 cap 05/20/21 ABG / Lab / Microbiology Data Result Diagrams: 05/20/21 05:33 05/20/21 05:33 Discharge Plan Admission Admit Date/Time: 05/17/21 19:16 Primary Reason for Your Visit: RUE cellulitis. Attending Provider: Bhargavi Gilbert Primary Care Provider: Victorino Obrien Discharge Orders/Prescriptions Prescriptions: New doxycycline monohydrate 100 mg capsule 100 mg PO BID Qty: 18 RF: 0 Referrals / Follow Up: Victorino Obrien MD [Primary Care Provider] - Within 2 Weeks [place] Trinh DO [STAFF PHYSICIAN] - See Referral Note (See Dr. Trinh for elective removal of bursal cyst. ) Disposition Disposition (needs filled in before D/C Order can be placed): Home, Self Care Charges/Coding Addendum Addendum: Patient by Luis Mayfield PA-C under my supervision Patient is a 50 y/o male with a PMH as outlined who was admitted with a complaint of pain and swelling of his right hand. He was admitted and managed for RUE cellulitis. He was started on IV clindamycin. BLood cultures were negative. Swelling of his right hand gradually improved significantly. Orthopedic surgery was initially consulted as there was no significant improvement in his swelling. Orthoopedics reviewed him and was concerned about a bursa vs simple cyst from prior penetrating injury. Orthopedics recommended outpatient follow up for resection of the bursal. Give me stable discharge home 05/20/2021 on p.o. doxycycline for 9 days and is follow-up with orthopedic surgery and his PCP. Patient seen and examined prior to discharge. He had no active complaints and felt well. Review of symptoms otherwise negative. Labs and vitals reviewed. Home medications reviewed and reconciled. O/E; const: alert, oriented x 3 and no apparent distress HEENT: atraumatic. Moist oral movement: Membranes Eyes: PERRL, EOMs intact bilaterally and conjunctiva normal Neck: No left lymphadenopathy, supple, no JVD RESP: Normal respiratory effort with clear auscultation bilaterally CVS: Normal S1 and S2, no murmurs GI: Abdomen soft to palpation, nontender, no organomegaly Extremity: Swelling of dorsum of right hand has improved significantly. Able to make a fist. No erythema or tenderness Skin: Erythema of dorsum of right hand has resolved Neuro: CN II through XII intact bilaterally Psych: Normal affect Plan is for discharge home today as above. Total time I spent spent on discharge: 37 minutes Rest as per Luis Mayfield PA-C's notes which I reviewed and endorsed. Visit Charges Inpatient E&M: [id number] Disch Hosp
== END 2021-05-20 11:45 | disposition home or self-care (01) | DRG 383 ==
LOC: ED 17:33 → MS2 18:17
PROVIDERS: Internal Medicine; Admitting Provider Hospitalist; Emergency Provider Emergency Medicine; PCP Family Medicine; Visit Provider Student in an Organized Health Care Education/Training Program
DX: L03.113 Cellulitis of right upper limb (principal); B18.1 Chronic viral hepatitis B without delta-agent; E80.6 Other disorders of bilirubin metabolism; F17.210 Nicotine dependence, cigarettes, uncomplicated; S60.511A Abrasion of right hand, initial encounter; Z59.00 Homelessness unspecified; X58.XXXA Exposure to other specified factors, initial encounter; Y93.9 Activity, unspecified; Y99.9 Unspecified external cause status; Y92.9 Unspecified place or not applicable
CPT/HCPCS: 36415; 70030; 73130; 73218; 80048; 80076; 80202; 83036; 85025; 86703; 86706; 87040; 87340; 87426; 96361; 96365; 96366; 96367; 99218; 99283; J7040; J7050; J7120; A4216; G0378; J0295; J2405